=== PATIENT | female | born 1995 | race Caucasian/White ===

== ENCOUNTER 2017-01-29 02:44 | Emergency (ER) | payer OTHER ==
--- NOTE | 2017-01-29 03:30 | PDOC ---
History of Present Illness - General Stated Complaint: REDNESS AND SWELLING/RASH Time Seen by Provider: 01/29/17 03:21 - History of Present Illness Initial Comments: 01/29/17 03:29 Patient is a 21 y.o. female with no reported PMH who presents to our ED tonight c/o macular rash on R forearm, neck, abdomen and back. Patient denies any recent travel or outdoor exposures. Patient notes that no other family members or friends have similar SiSx. Patient denies any shortness of breath, fevers or chills. Past History - Past Medical History Allergies/Adverse Reactions: Allergies Allergy/AdvReac Type Severity Reaction Status Date / Time No Known Allergies Allergy Verified 01/29/17 03:42 Home Medications: Ambulatory Orders No Home Medications 0 dose .ROUTE UTDICT 05/01/13 Pantoprazole Sodium [Protonix] 40 mg PO DAILY #30 tablet. 03/04/16 Ranitidine HCl [Zantac] 150 mg PO BID PRN #20 tablet 03/04/16 Cephalexin [Keflex] 250 mg PO QID #28 capsule 01/29/17 Prednisone [Deltasone -] 20 mg PO DAILY #3 tablet 01/29/17 GI Disorders: Yes (constipation) - Immunization History Immunization Up to Date: Yes - Suicide/Smoking/Psychosocial Hx Smoking History: Never smoked Have you smoked in the past 12 months: No Hx Alcohol Use: No Drug/Substance Use Hx: No Substance Use Type: None Review of Systems - Review of Systems Constitutional: No: Chills, Fever HEENTM: No: Blurred Vision, Double Vision Respiratory: No: Cough, Shortness of Breath Cardiac (ROS): No: Chest Pain, Lightheadedness, Palpitations ABD/GI: No: Constipated, Diarrhea, Nausea, Vomiting : Yes: Burning, Dysuria *Physical Exam - Physical Exam General Appearance: Yes: Nourished, Thin HEENT: positive: EOMI, ZOE Neck: positive: Trachea midline, Supple Respiratory/Chest: positive: Lungs Clear Cardiovascular: positive: S1, S2 Integumentary: positive: Other (R forearm, neck, central abdomen, paraspinal B/ L macular rash with some papular areas.) Neurologic: positive: Fully Oriented, Alert Medical Decision Making - Medical Decision Making 01/29/17 04:30 Patient is a 21 y.o. female who presents to our ED c/o 2 day h/o of multiple rashes. PLAN: 1. Benadryl + Decadron 2. Reassess with planned disposition home 01/29/17 04:39 Patient's erythema improved considerably with Benadryl. Patient given TDAP and counseled on return precautions including shortness of breath or increased symptom severity. Patient discharged home with prescription for Cephalexin and three day course of steroids. *DC/Admit/Observation/Transfer Diagnosis at time of Disposition: Bug bite - Discharge Dispostion Disposition: HOME Condition at time of disposition: Good Admit: No - Prescriptions Prescriptions: Prednisone [Deltasone -] 20 mg PO DAILY #3 tablet Cephalexin [Keflex] 250 mg PO QID #28 capsule - Patient Instructions Printed Discharge Instructions: DI for Hives Additional Instructions: Please return home should you experience shortness of breath or increase in your symptom severity. A prescription for antibiotics as well as a three day course of steroids (to reduce inflammation) has been sent to your pharmacy.
[2017-01-29] MEDS ORDERED: DEXAMETHASONE LIQUID 0.5 MG/5 ML 240 ML BULK BOTTLE PO ONE (03:33)
[2017-01-29] MEDS ORDERED: diphenhydrAMINE HCL 12.5 MG/5 ML UNIT-DOSE CUPS PO ONE (03:35)
[2017-01-29] MEDS ORDERED: DEXAMETHASONE SOD PHOSPHATE 10 MG/1 ML VIAL ONE (03:39)
[2017-01-29] MEDS ORDERED: diphenhydrAMINE HCL 25 MG CAPSULE (FP) PO ONE (03:40)
[2017-01-29 03:44] VITALS: TEMP 97.1; BMI 20.5
[2017-01-29] MEDS ORDERED: CEPHALEXIN MONOHYDRATE 250 MG CAPSULE (FP) PO ONE (04:08)
--- NOTE | 2017-01-29 04:10 | PDOC ---
Attending Attestation - Resident Resident Name: Juana Ocampo - HPI HPI: 01/29/17 04:09 Pt comes with bug bites and allergic reaction to them. - Physicial Exam PE: 01/29/17 04:09 Agree with resident exam - Medical Decision Making 01/29/17 04:10 tdap given today; keflex; benadryl and prednisone. Home with keflex and prednisone and benadyl
[2017-01-29] MEDS ORDERED: CEPHALEXIN MONOHYDRATE 250 MG CAPSULE (FP) ONE (04:13)
[2017-01-29] MEDS ORDERED: DIPHTH,PERTUSS(ACELL),TET 0.5 ML DISP.SYRIN IM ONE (04:37)
[2017-01-29 04:53] VITALS: BP 119/78; PULSE 68
== END 2017-01-29 04:51 | disposition home or self-care (01) ==
LOC: JER 02:44
PROC: 3E0234Z Introduction of Serum, Toxoid and Vaccine into Muscle, Percutaneous Approach (ICD-10-PCS; principal; 2017-01-29)
DX: L23.89 Allergic contact dermatitis due to other agents (principal); T63.481A Toxic effect of venom of other arthropod, accidental (unintentional), initial encounter; S10.96XA Insect bite of unspecified part of neck, initial encounter; S30.861A Insect bite (nonvenomous) of abdominal wall, initial encounter; S20.469A Insect bite (nonvenomous) of unspecified back wall of thorax, initial encounter; S50.861A Insect bite (nonvenomous) of right forearm, initial encounter; Y92.89 Other specified places as the place of occurrence of the external cause
CPT/HCPCS: 90471; 90715; 99281-25

== ENCOUNTER 2017-12-16 10:52 | Emergency (ER) | payer OTHER ==
[2017-12-16 10:59] VITALS: TEMP 97.9; BMI 20.5
[2017-12-16] MEDS ORDERED: PANTOPRAZOLE SODIUM 40 MG in SODIUM CHLORIDE 100 ML IVPB ONE (12:21)
[2017-12-16] MEDS ORDERED: PANTOPRAZOLE SODIUM 40 MG/100 ML BAG IVPB ONE (12:27)
--- NOTE | 2017-12-16 12:39 | PDOC ---
History of Present Illness - General Chief Complaint: Pain Stated Complaint: LT SIDE PAIN Time Seen by Provider: 12/16/17 11:16 Exam Limitations: No Limitations - History of Present Illness Travel History: No Initial Comments: 12/16/17 12:09 22-year-old female with history of gastritis presents to the ED with complaints of left upper quadrant left flank and left periumbilical cramping with sharp intermittent pain for the past week worsening in severity since yesterday. Patient denies nausea, fever, chills but this state urinary frequency without dysuria or hematuria. Patient states regular menstruation schedule and denies any injury, or rash Timing/Duration: reports: getting worse, intermittent Abdominal Pain Onset Location: reports: LUQ, epigastric, flank Pain Radiation: reports: back Activities at Onset: reports: none Aggravating Factors: improves with: None Alleviating Factors: improves with: None Past History - Travel Traveled outside of the country in the last 30 days: No - Past Medical History Allergies/Adverse Reactions: Allergies Allergy/AdvReac Type Severity Reaction Status Date / Time No Known Allergies Allergy Verified 12/16/17 10:58 Home Medications: Ambulatory Orders Cephalexin [Keflex] 250 mg PO QID #28 capsule 01/29/17 predniSONE [Deltasone -] 20 mg PO DAILY #3 tablet 01/29/17 COPD: No GI Disorders: Yes (constipation) - Immunization History Immunization Up to Date: Yes - Suicide/Smoking/Psychosocial Hx Smoking History: Never smoked Have you smoked in the past 12 months: No Hx Alcohol Use: No Drug/Substance Use Hx: No Substance Use Type: None Patient Lives Alone: No Lives with/in: parents Review of Systems - Review of Systems Able to Perform ROS?: No Constitutional: No: Symptoms Reported HEENTM: No: Symptoms Reported Respiratory: No: Symptoms reported Cardiac (ROS): No: Symptoms Reported ABD/GI: Yes: Abdominal cramping. No: Constipated, Diarrhea, Poor Appetite, Poor Fluid Intake : Yes: Frequency, Flank Pain Musculoskeletal: No: Symptoms Reported Integumentary: No: Symptoms Reported Neurological: No: Symptoms reported Endocrine: No: Symptoms Reported Hematologic/Lymphatic: No: Symptoms Reported *Physical Exam - Vital Signs Last Vital Signs Temp Pulse Resp BP Pulse Ox 97.9 F 55 L 18 126/82 99 12/16/17 10:56 12/16/17 10:56 12/16/17 10:56 12/16/17 10:56 12/16/17 10:56 - Physical Exam General Appearance: Yes: Nourished, Appropriately Dressed. No: Apparent Distress HEENT: negative: Pale Conjunctivae Neck: positive: Normal Thyroid, Supple Respiratory/Chest: positive: Lungs Clear, Normal Breath Sounds. negative: Respiratory Distress, Accessory Muscle Use Cardiovascular: positive: Regular Rhythm, Regular Rate (62 on monitor). negative: Murmur Gastrointestinal/Abdominal: positive: Soft, Tenderness (left flank, luq, left periumbilical) Musculoskeletal: negative: CVA Tenderness (R), CVA Tenderness (L) Extremity: positive: Normal Capillary Refill. negative: Pedal Edema Integumentary: positive: Normal Color, Warm, Moist Neurologic: positive: Motor Strength 5/5 (ambulatory) ED Treatment Course - LABORATORY CBC & Chemistry Diagram: 12/16/17 12:34 12/16/17 12:34 Medical Decision Making - Medical Decision Making 12/16/17 12:27 Patient here with left abdominal pain without associated symptoms except for urinary frequency. Patient exhibited tenderness to left flank left periumbilical and left upper quadrant. Patient ordered for labs, urine, IV protonic since she states history of gastritis and used to take Prilosec but stopped a few months ago. 12/16/17 13:28 Laboratory Tests 12/16/17 12/16/17 12/16/17 12:34 12:34 12:35 WBC 6.5 Hgb 13.6 Hct 41.5 Neutrophils % 68.7 D Sodium 140 Potassium 4.1 Chloride 106 Carbon Dioxide 26 Anion Gap 8 BUN 14 Creatinine 0.7 Random Glucose 74 Calcium 8.7 Magnesium 2.2 Total Bilirubin 0.3 AST 40 H ALT 34 Urine Ketones Negative Urine Nitrite Negative Urine HCG, Qual Negative 12/16/17 17:19 No obvious periumbilical fluid collection seen. No definitive left ovarian cyst is noted. A right ovarian cyst is seen. IUD malposition is noted at the level of the lower uterine segment. A small amount of free fluid is seen with in the cul-de-sac and along the ventral border of the uterus. Patient will be referred to her TIME CHECKER and told to use another contraceptive measure. *DC/Admit/Observation/Transfer Diagnosis at time of Disposition: Abdominal pain, Malpositioned IUD - Discharge Dispostion Disposition: HOME Condition at time of disposition: Good - Referrals Referrals: ON STAFF,NOT [Primary Care Provider] - - Patient Instructions Printed Discharge Instructions: DI for Abdominal Pain-Adult Additional Instructions: Please follow-up with your TIME CHECKER and bring copy of the ultrasound and lab work with you and also to your primary care doctor. - Post Discharge Activity
[2017-12-16 12:45] LABS: BASO % 0.3 % (0-2.0); EOS % 0.6 % (0-4.5); HEMATOCRIT 41.5 % (32.4-45.2); HEMOGLOBIN 13.6 GM/dL (10.7-15.3); LYMPH % 22.7 % (8-40); MCH 26.7 pg (25.7-33.7); MCHC 32.8 g/dl (32.0-36.0); MEAN CELL VOLUME 81.2 fl (80-96); MEAN PLT VOLUME 9.5 fl (7.5-11.1); MONO % 7.7 % (3.8-10.2); NEUT % 68.7 % (42.8-82.8); PLATELET COUNT 136 K/MM3 (134-434); RBC 5.11 M/mm3 (3.60-5.2); RDW 14.3 % (11.6-15.6); WHITE BLOOD COUNT 6.5 K/mm3 (4.0-10.0)
[2017-12-16 12:47] LABS: URINE APPEARANCE SLCLOUDY; URINE BILIRUBIN NEGATIVE (<2.0 mg/dL); URINE COLOR LTYELLOW; URINE GLUCOSE (UA) NEGATIVE (NEGATIVE); URINE KETONE NEGATIVE (NEGATIVE); URINE LEUK ESTERASE NEGATIVE (NEGATIVE); URINE NITRITE NEGATIVE (NEGATIVE); URINE PROTEIN NEGATIVE (NEGATIVE); URINE UROBILINOGEN NEGATIVE mg/dL (0.2-1.0)
[2017-12-16 12:49] LABS: HCG,QUALITATIVE URINE Negative
[2017-12-16 13:00] LABS: ALBUMIN 3.7 g/dl (3.4-5.0); ALK PHOS 64 U/L (45-117); ANION GAP 8 MMOL/L (8-16); BILIRUBIN,TOTAL 0.3 mg/dL (0.2-1.0); BLOOD UREA NITROGEN 14 mg/dL (7-18); CALCIUM 8.7 mg/dL (8.5-10.1); CHLORIDE 106 mmol/L (98-107); CO2 26 mmol/L (21-32); CREATININE 0.7 mg/dL (0.55-1.02); GLUCOSE,RANDOM 74 mg/dL (74-106); LIPASE 174 U/L (73-393); MAGNESIUM 2.2 mg/dL (1.8-2.4); POTASSIUM 4.1 mmol/L (3.5-5.1); SGOT/AST 40 U/L (15-37); SGPT/ALT 34 U/L (12-78); SODIUM 140 mmol/L (136-145); TOT PROT 6.8 g/dl (6.4-8.2)
[2017-12-16 17:38] VITALS: BP 120/77; PULSE 65
== END 2017-12-16 17:37 | disposition home or self-care (01) ==
LOC: JER 10:52
PROC: 3E033GC Introduction of Other Therapeutic Substance into Peripheral Vein, Percutaneous Approach (ICD-10-PCS; principal; 2017-12-16)
DX: R10.9 Unspecified abdominal pain (principal); N83.202 Unspecified ovarian cyst, left side; N83.201 Unspecified ovarian cyst, right side; T83.32XA Displacement of intrauterine contraceptive device, initial encounter
CPT/HCPCS: 36415; 76856-TC; 80053; 81003; 83690; 83735; 84703; 85025; 87086; 96365; 99282-25

== ENCOUNTER 2018-11-27 20:08 | Emergency (ER) | payer OTHER | END 2018-11-27 23:30 | disposition left against medical advice (07) | LOC: JER 20:08 ==